=== PATIENT | male | born 1945 | race Caucasian/White ===

== ENCOUNTER → 2017-01-17 | Outpatient (CLI) | payer MEDICARE ==
[~2017-01-17] MED LIST: ASPIRIN PO; ASPIRIN81 M2 PO; DICYCLOMINE HCL20 MG PO; FLONASE16 GM; LIPITOR40 MG PO; LISINOPRIL PO; LISINOPRIL10 MG PO; MELOXICAM15 MG PO; METFORMIN PO; MULTI-VITAMIN1 TAB PO; SINGULAIR PO; ZOFRANODT PO
--- NOTE | ~2017-01-17 | CT4 ---
[facility] RADIOLOGY TEXT RESULTS PATIENT: GREGORY GONZALEZ LOCATION: [facility] : 45 UNIT #: [id number] AGE: [address]: Reji Teixeira MD SEX: M ORDER DR: [id number] [facility] [place], [place] [address] [id number] O MR#: [id number] [facility] #: [id number] NAME: GREGORY GONZALEZ : 1945 SEX: M STUDY DATE/TIME: 01/17/2017 15:20 UNIT: [facility] ROOM: STUDY DESCRIPTION: CT Abd and Pelv Wo Cont Attending Physician: Reji Teixeira M.D. Referring Physician: Reji Teixeira M.D. Ordering Physician: Reji Teixeira M.D. Primary Care Physician: Carolyne Hinkle M.D. MEDICAL IMAGING REPORT This report is preliminary unless electronic signature is present EXAM CT abdomen and pelvis INDICATION Microscopic hematuria for 3-[address] of the abdomen and pelvis without contrast. Coronal and sagittal reconstructions were obtained. This CT exam was performed with one or more of the following radiation dose reduction techniques: automatic exposure control, adjustment of mA and/or kV according to patient size, and iterative reconstruction. COMPARISON None available. FINDINGS ABDOMEN: There is a small 2.0 mm calculus in the mid-left kidney. No hydronephrosis or ureteral calculi. No right renal calculi. Noncontrast evaluation of the remaining solid abdominal organs are within normal limits. The gallbladder is not distended. The pancreas, spleen, and adrenal glands are within normal limits. The bowel is not dilated. The gallbladder is not distended. The appendix is normal. The abdominal aorta is normal in caliber. PELVIS: The bladder is unremarkable. No enlarged pelvic or inguinal lymph nodes. The prostate is borderline enlarged measuring 4.7 x 3.9 x 4.3 cm. There are some dystrophic calcifications in the prostate. [facility] A [facility] RADIOLOGY TEXT RESULTS PATIENT: GREGORY GONZALEZ LOCATION: [facility] : 45 UNIT #: [id number] AGE: [address]: Reji Teixeira MD SEX: M ORDER DR: No acute osseous abnormalities. There are some degenerative changes in the lumbar spine. IMPRESSION 1. Small 2.0 mm nonobstructing calculus in the mid left kidney. No hydronephrosis or ureteral calculi. 2. Borderline prostate enlargement. Dictated by... Eloy Alejandro M.D. THIS IS AN ELECTRONICALLY VERIFIED REPORT Eloy Alejandro M.D. at 01/18/2017 1:41 PM ASHWIN/yunier TD: 01/18/2017 09:29 JOB #: [id number] MEDICAL IMAGING REPORT Page 1 of 1 COPY
== END | disposition home or self-care (01) ==
LOC: CCAT 14:22
DX: R31.29 Other microscopic hematuria (principal); N20.0 Calculus of kidney; N40.0 Benign prostatic hyperplasia without lower urinary tract symptoms
CPT/HCPCS: 74176

== ENCOUNTER → 2017-01-18 | Outpatient (CLI) | payer MEDICARE ==
[2017-01-18 13:52] LABS: HEMATOCRIT 42.4 % (38.0-50.0); HEMOGLOBIN 14.2 gm/dL (13.0-16.0); MEAN CELL VOLUME 92.9 FL (83-96); MEAN CORPUSCULAR HEMOGLOBIN 31.1 PG (28-34); MEAN CORPUSCULAR HGB CONC 33.4 g/dL (30-36); MEAN PLATELET VOLUME 8.6 FL (6.5-11.5); RED BLOOD COUNT 4.56 X10e (3.90-5.60); RED CELL DISTRIBUTION WIDTH 12.7 % (11.0-15.5); WHITE BLOOD COUNT 6.1 X10e3 (4.0-10.5)
[2017-01-18 13:53] LABS: URINE APPEARANCE CLEAR; URINE BILIRUBIN NEG (NEG); URINE BLOOD 1+ (NEG); URINE COLOR YELLOW; URINE GLUCOSE NEG (NEG); URINE KETONE NEG (NEG); URINE LEUKOCYTE ESTERASE NEG (NEG); URINE NITRATE NEG (NEG); URINE PROTEIN 1+ (NEG); URINE SPECIFIC GRAVITY 1.025 (1.003-1.035)
[2017-01-18 13:56] LABS: URINE BACTERIA AUWI NEG (NEGATIVE); URINE SQUAMOUS EPITHELIAL CELL MANY /[HPF]; UWBCS1 AUWI 25-50 (0-5)
[2017-01-18 14:12] LABS: URINE WAXY CAST 0-2 /[HPF]
[2017-01-18 14:16] LABS: URINE SOURCE CLEAN CATCH
[2017-01-18 14:20] LABS: BUN/CREATININE RATIO 22.5; CALCIUM SERUM 9.4 mg/dL (8.4-10.2); CREATININE SERUM 1.6 mg/dL (0.6-1.4); GLOM FILT RATE Estimated 42.7 mL/min (>60); PHOSPHOROUS 3.4 mg/dL (2.5-4.6)
[2017-01-21 16:20] LABS: CALCIUM (PTHINTACT) 9.4 mg/dL (8.6-10.3)
== END | disposition home or self-care (01) ==
LOC: CLAB 13:15
PROVIDERS: Internal Medicine Nephrology
DX: I12.9 Hypertensive chronic kidney disease with stage 1 through stage 4 chronic kidney disease, or unspecified chronic kidney disease (principal); N18.3 Chronic kidney disease, stage 3 (moderate); R31.9 Hematuria, unspecified; E55.9 Vitamin D deficiency, unspecified
CPT/HCPCS: 36415; 80048; 81003; 82306; 82310; 83970; 84100; 85027; 87086

== ENCOUNTER → 2017-02-13 | Outpatient (CLI) | payer MEDICARE ==
[2017-02-13 14:46] LABS: ALBUMIN SERUM 3.8 g/dL (3.5-5.0); BILIRUBIN, DIRECT 0.1 mg/dL (0.0-0.2); BILIRUBIN,INDIRECT 0.5 mg/dL (0.0-0.9); BILIRUBIN,TOTAL 0.6 mg/dL (0.2-2.0); PROTEIN TOTAL SERUM 6.6 g/dL (6.0-8.3)
== END | disposition home or self-care (01) ==
LOC: CLAB 13:21
PROVIDERS: Internal Medicine Interventional Cardiology
DX: E78.5 Hyperlipidemia, unspecified (principal)
CPT/HCPCS: 36415; 80061; 80076